=== PATIENT | male | born 1960 | race Caucasian/White ===

== ENCOUNTER 2023-04-30 13:18 | Emergency (ER) | payer OTHER, SELFPAY ==
--- NOTE | 2023-04-30 13:34 | ED.WOUNDLAC ---
HPI - Wound/Laceration General Chief Complaint: Wound/Laceration Stated Complaint: Laceration to top of Left Hand Time Seen by Provider: 04/30/23 13:30 Source: patient, RN notes reviewed and old records reviewed Mode of arrival: ambulatory Limitations: no limitations History of Present Illness HPI narrative: 62 year old male who presents to [facility] with complaints of laceration to the left hand dorsal aspect above thumb area which he states occurred when he accidently cut his hand with a utility knife.approximately one hour ago. Patient was wearing gloves at time of injury. Patient reports that he did have alot of bleeding from his wound and he applied a pressure dressing to site to get the bleeding stopped. Patinent reports that his tetanus shot is up to date. Onset (ago): hour(s) (1 hour prior to arrival) Extremity Location: Left: hand Patient tetanus UTD: Yes Treatments prior to arrival: bandage Related Data Home Medications Medication Instructions Recorded Confirmed nebivolol 5 mg tablet mg 04/30/23 Allergies Allergy/AdvReac Type Severity Reaction Status Date / Time No Known Allergies Allergy Verified 04/30/23 13:23 Review of Systems Review of Systems: CONSTITUTIONAL: Denies fever, chills, or sweats. CARDIOVASCULAR: Denies chest pain, palpitations, or edema. RESPIRATORY: Denies cough or dyspnea. SKIN: Reports laceration to left hand above thumb region dorsal aspect MUSCULOSKELETAL: Denies musculoskeletal pain NEUROLOGIC: Denies numbness, or weakness. All systems reviewed & are unremarkable except as noted in HPI and below PMFSH Past Medical History Medical History (Updated 05/02/23 @ 22:23 by Eloisa Lozada NP) Hypertension Social History Social History (Updated 04/30/23 @ 14:11 by Eloisa Lozada NP) Smoking status: Never smoker Alcohol intake: current Alcohol use details: social Substance use type: does not use Living arrangements: with family Gender identity (if verbalized by the patient): Male Comments At time of signature, agree with nursing past medical, surgical, social and family history. There is no relevant family history pertinent to the presenting complaint Exam Narrative: GENERAL: Well-appearing, well-nourished, and in no acute distress. HEAD: Normocephalic, atraumatic. NECK: Supple.no lymphadenopathy CHEST: Clear to auscultation. No respiratory distress.SAO2 95% on room air HEART: Regular rate and rhythm. No murmur heard. Normal peripheral pulses. EXTREMITIES: Normal range of motion. No edema. SKIN: Warm, dry, no rash. Reports Laceration to dorsal left hand above thumb region, has full mobility of thumb and all fingers, strong left radial pulse, no tingling or numbness to hand or fingers, hand warm and pink. NEURO: No focal deficits. Alert and oriented x3. Course Course Level of Care: Express Care Visit Vital Signs Vital signs: Vital Signs Temperature 36.8 C 04/30/23 13:35 Pulse Rate 100 04/30/23 13:35 Respiratory Rate 18 04/30/23 13:35 Blood Pressure 151/97 H 04/30/23 13:35 Pulse Oximetry 95 04/30/23 13:35 Oxygen Delivery Room Air 04/30/23 13:35 Temperature 36.8 C 04/30/23 13:35 Pulse Rate 100 04/30/23 13:35 Respiratory Rate 18 04/30/23 13:35 Blood Pressure 151/97 H 04/30/23 13:35 Pulse Oximetry 95 04/30/23 13:35 Oxygen Delivery Room Air 04/30/23 13:35 Procedures Laceration hand: Date: 04/30/23 Time: 13:50 Site: hand (dorsal area above thumb) Side (If applicable): left Size (cm): 2.5 Description: linear Depth: simple, single layer Local Anesthetic: lidocaine 1% and with epi Amount of anesthesia used (mL): 5 Pre-repair: wound explored, irrigated extensively and other (wound cleanser) ====== Skin Level ====== Skin layer closed with: nylon Size (cm): 4-0 Number of sutures: 5 Technique: simple, in
[2023-04-30 13:35] VITALS: BP 151/97; PULSE 100; RESP 18; TEMP 36.8; O2SAT 95
== END 2023-04-30 14:27 | disposition home or self-care (01) ==
PROVIDERS: Emergency Provider Registered Nurse
DX: S61.412A Laceration without foreign body of left hand, initial encounter (principal); Z79.899 Other long term (current) drug therapy; W26.0XXA Contact with knife, initial encounter
CPT/HCPCS: 12001; 99213; G0463